=== PATIENT | male | born 2005 | race Caucasian/White ===

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

== ENCOUNTER 2024-03-02 14:35 | Emergency (ER) | payer SELFPAY ==
[2024-03-02 14:42] VITALS: BP 126/64; PULSE 80; RESP 16; TEMP 36.2; O2SAT 100
--- NOTE | 2024-03-02 15:08 | ED.BACK ---
HPI - Back Pain/Injury General Chief Complaint: Back Pain/Injury Stated Complaint: bilateral flank pain Time Seen by Provider: 03/02/24 14:42 History of Present Illness HPI Narrative: 18-year-old male present to the emergency department for evaluation for bilateral flank pain that is been ongoing for the past 3 weeks. Patient states he does not drink very much water, drinks approximately 12 sodas a day. 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 Patient denies any specific incident of injury. Patient states when he drinks more water that this does help his flank pain. Patient denies any prior history of urinary tract infection or kidney stones. Related Data Home Medications Medication Instructions Recorded Confirmed esomeprazole magnesium 20 mg 20 mg PO DAILY 05/08/20 capsule,delayed release (Nexium) polyethylene glycol 3350 17 g DAILY 05/08/20 gram/dose oral powder (Miralax) sennosides 15 mg tablet (Ex-Lax 15 mg PO DAILY 05/08/20 (sennosides)) Allergies Allergy/AdvReac Type Severity Reaction Status Date / Time No Known Allergies Allergy Verified 05/08/20 13:13 Review of Systems Review of Systems: All systems reviewed & are unremarkable except as noted in HPI and below PMFSH Social History Social History Gender identity (if verbalized by the patient): Male Exam Narrative: APPEARANCE: Well appearing, no pain, no distress, well-nourished. HEAD: normocephalic, atraumatic. EYES: PERRLA/EOMI, conjunctivae clear. NOSE: Normal no drainage EARS:TMS clear with good light reflex. THROAT: Pharynx clear, no exudate. NECK: Supple. No adenopathy, no masses. RESPIRATORY: Airway patent, respirations nonlabored. Clear to auscultation bilaterally, no rales, rhonchi, wheezing. CARDIOVASCULAR: Regular rate and rhythm without murmurs rubs or gallops. ABDOMINAL: Soft, nontender, nondistended, normal bowel sounds MUSCULOSKELETAL: Moves all extremities. Strength/ROM intact, No edema, No calf tenderness. NEURO: Alert. Cranial nerves II through XII intact. Good gait. Good coordination SKIN: Warm, dry. Normal Color Course Vital Signs Vital signs: Vital Signs Temperature 97.2 F L 03/02/24 14:42 Pulse Rate 80 03/02/24 14:42 Respiratory Rate 16 03/02/24 14:42 Blood Pressure 126/64 03/02/24 14:42 Pulse Oximetry 100 03/02/24 14:42 Temperature 98.1 F 03/02/24 16:09 Pulse Rate 68 03/02/24 16:09 Respiratory Rate 16 03/02/24 16:09 Blood Pressure 127/81 03/02/24 16:09 Pulse Oximetry 99 03/02/24 16:09 MDM - Back Pain/Injury MDM Narrative Medical decision making narrative: 18-year-old male presents emergency department for evaluation of bilateral flank pain. Patient is afebrile with no leukocytosis and a stable hemoglobin of 16.3. Patient has no acute abnormalities on his CMP and urine shows no evidence of infection or hematuria. Suspect muscular injury or dehydration as the underlying etiology for the patient's symptoms. Patient family were updated on the results of workup patient was encouraged to decrease his caffeine intake and increase his water intake. All questions concerns were addressed and patient was comfortable and well-appearing at time of discharge. Differential Diagnosis Differential diagnosis: Likely strain of lumbar region, renal colic and pyelonephritis Lab Data 03/02/24 15:04 03/02/24 15:04 Labs: Lab Results 03/02/24 03/02/24 Range/Units 15:04 15:38 WBC 6.5 (4.5-10.0) K/mm3 RBC 5.72 (4.6-6.20) M/mm3 Hgb 16.3 (14.0-18.0) g/dL Hct 49.8 (42.0-52.0) % MCV 87.1 (80-100) fl MCH 28.5 (26-34) pg MCHC 32.7 (32-36) g/dl RDW 13.4 (11.5-14.5) % Plt Count 350 (150-375) k/mm3 MPV 9.1 (7.4-10.4) fl Immature Gran % (Auto) 0.5 (0-0.5) % Neut % (Auto) 69.4 (45.5-73.1) % Lymph % (Auto) 21.4 (18.3-44.2) % Casey % (Auto) 7.4 (2.6-8.5) %
[2024-03-02 15:12] LABS: Basophils Percent Auto 0.5 % (0.2-1.2); Eosinophils Absolute Auto 0.1 K/mm3 (0-0.3); Eosinophils Percent Auto 0.8 % (0-4.4); Hematocrit 49.8 % (42.0-52.0); Hemoglobin 16.3 g/dL (14.0-18.0); Immature Granulocyte Absolute 0.03 K/mm3 (0.00-0.031); Immature Granulocyte Percent A 0.5 % (0-0.5); Lymphocytes Absolute Auto 1.39 K/mm3 (0.9-3.2); Lymphocytes Percent Auto 21.4 % (18.3-44.2); Mean Corpuscular HGB Conc 32.7 g/dl (32-36); Mean Corpuscular Hemoglobin 28.5 pg (26-34); Mean Corpuscular Volume 87.1 fl (80-100); Mean Platelet Volume 9.1 fl (7.4-10.4); Monocytes Absolute Auto 0.5 K/mm3 (0.1-0.6); Monocytes Percent Auto 7.4 % (2.6-8.5); Neutrophils Absolute Auto 4.5 K/mm3 (1.3-6.7); Neutrophils Percent Auto 69.4 % (45.5-73.1); Platelet Count Result 350 k/mm3 (150-375); Red Blood Count 5.72 M/mm3 (4.6-6.20); Red Cell Distribution Width 13.4 % (11.5-14.5); White Blood Count 6.5 K/mm3 (4.5-10.0)
[2024-03-02] MEDS: SODIUM CHLORIDE 0.9% IV 1,000 ML 999 ML IV CONT (15:13)
[2024-03-02 15:25] LABS: Alanine Aminotransferase 24 U/L (6-50); Albumin Level 4.3 g/dL (3.7-5.6); Alkaline Phosphatase 55 U/L (58-237); Anion Gap 8 mmol/L (4-12); Aspartate Amino Transferase 22 U/L (17-59); Bilirubin,Total 0.6 mg/dL (0.2-1.3); Blood Urea Nitrogen 9 mg/dL (8-21); Carbon Dioxide 32 mmol/L (22-30); Chloride 99 mmol/L (98-107); Estimated CRCL calculation 112 ml/min; Estimated Glomerular Filt Rate > 60; Glucose 105 mg/dL (65-110); Potassium 3.6 mmol/L (3.4-5.0); Sodium 139 mmol/L (134-143)
[2024-03-02 15:48] LABS: Appearance Urine Turbid (Clear); Bacteria Urine None Seen /hpf; Bilirubin Urine Negative (Negative); Blood Urine Negative (Negative); Color Urine Yellow (Yellow); Glucose Urine UA Negative (Negative); Ketones Urine Negative (Negative); Leukocyte Esterase Ur Negative LEU/UL (Negative); Nitrate Urine Negative (Negative); Non Pathogenic Casts 0-2; Protein Urine Negative (Negative); RBC Urine 0-2 /hpf (0-2); Specific Grav Ur 1.016 (1.001-1.035); Squamous Epithelial Cell Urine None Seen /hpf (Few); WBC Urine 0-5 /hpf (0-3)
[2024-03-02 15:49] LABS: Add Urine Microscopic? YES
[2024-03-02 16:09] VITALS: BP 127/81; PULSE 68; RESP 16; TEMP 36.7; O2SAT 99
== END 2024-03-02 16:11 | disposition home or self-care (01) ==
PROVIDERS: Emergency Provider Emergency Medicine
DX: S39.012A Strain of muscle, fascia and tendon of lower back, initial encounter (principal); R10.9 Unspecified abdominal pain; X50.0XXA Overexertion from strenuous movement or load, initial encounter
CPT/HCPCS: 36415; 80053; 81001; 85025; 96360; 99283; J7030